=== PATIENT | female | born 1970 | race Caucasian/White ===

== ENCOUNTER 2017-03-05 14:37 | Observation (INO) | payer MEDICAID ==
[2017-03-05 14:38] VITALS: BMI 22.6
[2017-03-05 16:39] LABS: BASO # 0.2 K/uL (0.0-0.2); BASO % 2.3 % (0.0-2.0); EOS # 0.1 K/uL (0.0-0.7); EOS % 1.5 % (0.0-4.0); HEMATOCRIT 38.4 % (34.0-47.0); LYMPH # 2.4 K/uL (1.0-4.3); LYMPH % 23.6 % (20.0-40.0); MEAN CELL VOLUME 85.7 fL (81.0-99.0); MEAN CORPUSCULAR HGB CONC 33.9 g/dL (33.0-37.0); MEAN PLATELET VOLUME 7.8 fL (7.2-11.7); MONO # 0.5 K/uL (0.0-0.8); MONO % 5.3 % (0.0-10.0); WHITE BLOOD COUNT 10.1 K/uL (4.8-10.8)
[2017-03-05 16:42] LABS: CHLORIDE 100 mmol/L (98-107); SODIUM 133 mmol/L (132-148)
[2017-03-05 16:43] LABS: POTASSIUM 3.7 mmol/L (3.6-5.2)
[2017-03-05 16:45] LABS: ALB/GLOB RATIO 1.2 (1.0-2.1); ALKALINE PHOSPHATASE 73 U/L (38-126); ALT/SGPT 40 U/L (9-52); AST/SGOT 24 U/L (14-36); BILIRUBIN,TOTAL 0.4 mg/dL (0.2-1.3); BLOOD UREA NITROGEN 11 mg/dL (7-17); CARBON DIOXIDE 20 mmol/L (22-30); GFR AFRICAN-AMERICAN > 60; GLUCOSE,RANDOM 128 mg/dL (65-105); TOTAL PROTEIN 7.7 g/dL (6.3-8.3)
[2017-03-05 16:46] LABS: CALCIUM 8.9 mg/dl (8.6-10.4)
--- NOTE | 2017-03-05 16:59 | C.PDOC ---
History Of Present Illness 46 year old female, whose past medical history includes DM, Hypercholesterolemia and past familial history includes heart disease (mother), presents to the ED for evaluation of chest pain that radiates to left arm since 1330 today. Patient states she has not taken anything for her pain. She denies fever, chills, shortness of breath, nausea, vomiting diaphoresis, extremity numbness/weakness. Time Seen by Provider: 03/05/17 16:02 Chief Complaint (Nursing): Chest Pain History Per: Patient History/Exam Limitations: no limitations Onset/Duration Of Symptoms: Hrs Current Symptoms Are (Timing): Still Present Quality: "Pain" Associated Symptoms: denies: Nausea, Diaphoresis Additional History Per: Patient Past Medical History Reviewed: Historical Data, Nursing Documentation, Vital Signs Vital Signs: Last Vital Signs Temp 98.5 F 03/05/17 22:05 Pulse 65 03/05/17 22:05 Resp 20 03/05/17 22:05 BP 106/72 03/05/17 22:05 Pulse Ox 95 03/05/17 22:05 - Medical History PMH: Bronchitis, Diabetes, Hypercholesterolemia Denies: Hepatitis, HIV, HTN, Seizures, Sexually Transmitted Disease Family History: States: [place] (heart disease in mother ), Other - Social History Hx Tobacco Use: No Hx Alcohol Use: No Hx Substance Use: No - Immunization History Hx Tetanus Toxoid Vaccination: Yes Hx Influenza Vaccination: Yes Hx Pneumococcal Vaccination: Yes Review Of Systems Constitutional: Negative for: Fever, Chills, Sweats Cardiovascular: Positive for: Chest Pain Respiratory: Negative for: Shortness of Breath Gastrointestinal: Negative for: Nausea, Vomiting Musculoskeletal: Positive for: Arm Pain (left) Neurological: Negative for: Weakness, Numbness Physical Exam - Physical Exam Appears: Non-toxic, No Acute Distress Skin: Normal Color, Warm, Dry Head: Atraumatic, Normacephalic Eye(s): bilateral: Normal Inspection Oral Mucosa: Moist Neck: Supple Chest: Symmetrical, No Deformity, No Tenderness Cardiovascular: Rhythm Regular, No Murmur Respiratory: Normal Breath Sounds, No Rales, No Rhonchi, No Wheezing Extremity: Normal ROM, Capillary Refill (less than 2 seconds ) Neurological/Psych: Oriented x3, Normal Speech, Normal Cognition Gait: Steady ED Course And Treatment - Laboratory Results Result Diagrams: 03/05/17 16:28 03/05/17 16:28 ECG: Interpreted By Me, Viewed By Me ECG Rhythm: Sinus Rhythm Interpretation Of ECG: Normal Sinus Rhythm at rate 62bpm. No ST-segment elevations or depressions, no T-wave inversions, normal intervals. Rate From EC O2 Sat by Pulse Oximetry: 99 - Other Rad CXR X-Ray: Interpreted by Me, Viewed By Me, Read By Radiologist Interpretation: IMPRESSION: No focal consolidation, significant pleural effusion, or definite pneumothorax identified. Medical Decision Making Medical Decision Making: Assessment: chest pain Plan: * bloodwork * urinalysis * EKG * CXR * Aspirin PO * reassess and disposition Progress: Bloodwork, urinalysis, EKG, CXR ordered and reviewed. Aspirin PO administered. Case discussed with Shirt Ironer. Disposition Discussed With Dr.: Anam Aguero Jr. Doctor Will See Patient In The: Hospital Counseled Patient/Family Regarding: Studies Performed, Diagnosis - Disposition Disposition: HOSPITALIZED Disposition Time: 18:34 Condition: STABLE - Clinical Impression Clinical Impression: Chest pain - Scribe Statement The provider has reviewed the documentation as recorded by the Scribe (Daisy Ewing) Provider Attestation: All medical record entries made by the Scribe were at my direction and personally dictated by me. I have reviewed the chart and agree that the record accurately reflects my personal performance of the history, physical exam, medical decision making, and the department course for this patient. I have also personally directed, reviewed, and agree with the discharge instructions and disposition.
--- NOTE | 2017-03-05 18:16 | RAD ---
HISTORY: chest pain COMPARISON: Chest x-ray performed 05/23/13. TECHNIQUE: Chest PA and lateral FINDINGS: Examination limited by habitus. LUNGS: No focal consolidation. Please note that chest x-ray has limited sensitivity for the detection of pulmonary masses. PLEURA: No significant pleural effusion identified. No definite pneumothorax . CARDIOVASCULAR: Heart size appears within normal limits. OSSEOUS STRUCTURES: Degenerative changes. VISUALIZED UPPER ABDOMEN: Unremarkable. OTHER FINDINGS: None. IMPRESSION: No focal consolidation, significant pleural effusion, or definite pneumothorax identified.
--- NOTE | 2017-03-05 23:15 | CP.PCM.HP ---
History of Present Illness - History of Present Illness History of Present Illness: CC: Chest pain HPI: 46 year old female with a past medical history of DM2 and HLD. 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 The chest pain is described as "electric pressure," rated 4/10, and radiating to the left shoulder and arm. Associated symptoms included sweats, palpitations, hot sensation to left side of face, dizziness, and blurry vision. The pain was reportedly worse with palpation of the chest. Symptoms lasted 5 minutes before resolving on their own. Patient states she had a similar episode 2 years ago but was told nothing was wrong. She denies any past workup with echocardiogram or stress test. Denies recent travel or trauma, but states that she was moving heavy furniture yesterday. Denies recent illness, fever, vomiting, headache, weakness. Patient was given aspirin in ED. She has no chest pain or any other complaints at time of exam. Of note, patient states she has been forgetful with taking her medications. She states that her blood sugar usually ranges between 170 and 200+ at home, sometimes 300. Fingerstick at ED is 128. 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 absent: Dyspnea - Respiratory Respiratory: absent: Cough, Dyspnea - Gastrointestinal Gastrointestinal: absent: Abdominal Pain, Constipation, Diarrhea, Nausea, Vomiting - Genitourinary Genitourinary: absent: Dysuria, Hematuria, Urinary Frequency - Musculoskeletal Musculoskeletal: absent: Numbness, Tingling - Neurological Neurological: Dizziness. absent: Headaches, Tingling - Endocrine Endocrine: Palpitations Past Patient History - Past Medical History & Family History Past Medical History?: Yes - Past Social History Smoking Status: Never Smoked - CARDIAC Hx Cardiac Disorders: Yes Hx Hypercholesterolemia: Yes Hx Hypertension: No - PULMONARY Hx Respiratory Disorders: Yes Hx Bronchitis: Yes - NEUROLOGICAL Hx Neurological Disorder: No Hx Seizures: No - ENDOCRINE/METABOLIC Hx Endocrine Disorders: Yes Hx Diabetes Mellitus Type 2: Yes - HEMATOLOGICAL/ONCOLOGICAL Hx Blood Disorders: No Hx Human Immunodeficiency Virus (HIV): No - INTEGUMENTARY Hx Dermatological Problems: No - MUSCULOSKELETAL/RHEUMATOLOGICAL Hx Musculoskeletal Disorders: No Hx Falls: No - GASTROINTESTINAL Hx Gastrointestinal Disorders: No - GENITOURINARY/GYNECOLOGICAL Hx Genitourinary Disorders: No Hx Sexually Transmitted Disorders: No - PSYCHIATRIC Hx Psychophysiologic Disorder: No Hx Substance Use: No - SURGICAL HISTORY Hx Surgeries: Yes Hx Section: Yes Hx Gastric Bypass Surgery: Yes - ANESTHESIA Hx Anesthesia: Yes Hx Anesthesia Reactions: No Meds Allergies/Adverse Reactions: Allergies Allergy/AdvReac Type Severity Reaction Status Date / Time No Known Allergies Allergy Verified 07/23/14 16:04 Physical Exam - Constitutional Appears: No Acute Distress - Head Exam Head Exam: ATRAUMATIC, NORMAL INSPECTION - Eye Exam Eye Exam: EOMI, Normal appearance Pupil Exam: PERRL - ENT Exam ENT Exam: Mucous Membranes Moist - Respiratory Exam Respiratory Exam: Clear to Auscultation Bilateral, NORMAL BREATHING PATTERN. absent: Rales, Rhonchi, Wheezes - Cardiovascular Exam Cardiovascular Exam: REGULAR RHYTHM, RRR, +S1, +S2 - GI/Abdominal Exam GI & Abdominal Exam: Normal Bowel Sounds, Soft. absent: Distended, Firm, Mass, Tenderness - Extremities Exam Extremities exam: Positive for: normal inspection, pedal pulses present. Negative for: calf tenderness, pedal edema, tenderness - Neurological Exam Neurological exam: Alert, Oriented x3 - Psychiatric Exam Psychiatric exam: Normal Affect, Normal Mood - Skin Skin Exam: Dry, Intact, Normal Color, Warm Results - Vital Signs Recent Vital Signs: Last Vital Signs Temp 98.5 F 03/05/17 22:05 Pulse 65 03/05/17 22:05 Resp 20 03/05/17 22:05 BP 106/72 03/05/17 22:05 Pulse Ox 95 03/05/17 22:05 - Labs Result Diagrams: 03/05/17 16:28 03/05/17 16:28 Labs: Laboratory Results - last 24 hr 03/05/17 03/05/17 03/05/17 16:28 16:28 16:59 WBC 10.1 RBC 4.48 Hgb 13.0 Hct 38.4 MCV 85.7 D MCH 29.0 MCHC 33.9 RDW 13.0 Plt Count 315 MPV 7.8 Neut % (Auto) 67.3 Lymph % (Auto) 23.6 [place] % (Auto) 5.3 Eos % (Auto) 1.5 Baso % (Auto) 2.3 H Neut # 6.8 Lymph # 2.4 [place] # 0.5 Eos # 0.1 Baso # 0.2 Sodium 133 Potassium 3.7 Chloride 100 Carbon Dioxide 20 L Anion Gap 17 BUN 11 Creatinine 0.5 L Est GFR ( Amer) > 60 Est GFR (Non-Af Amer) > 60 Random Glucose 128 H Calcium 8.9 Total Bilirubin 0.4 AST 24 ALT 40 Alkaline Phosphatase 73 Troponin I < 0.0120 Total Protein 7.7 Albumin 4.2 Globulin 3.6 Albumin/Globulin Ratio 1.2 Urine HCG, Qual Negative Assessment & Plan (1) Chest pain Assessment and Plan: EKG: NSR @62bpm CXR: no active disease Troponinx1: negative Troponin x2: f/u results Echo: f/u results TSH: f/u results UDS: negative Cardiology consulted- Dr. Solorzano, help appreciated Status: Acute (2) Hyperlipidemia Assessment and Plan: Continue home medication- Fenofibrate Status: Acute (3) Diabetes Assessment and Plan: Continue home medication- Metformin Monitor blood glucose, Accuchecks Hemoglobin A1c: f/u results Status: Acute (4) Prophylactic measure Assessment and Plan: SCDs O2 via nasal cannula prn Pepcid 20mg PO BID Heparin 5000 SC Aspirin 81mg PO daily Heart Healthy diet Activity as tolerated Status: Acute
--- NOTE | 2017-03-06 07:31 | CP.PCM.CON ---
History of Present Illness - History of Present Illness History of Present Illness: I was asked to see patient by Dr. Aguero. Patient is a 46 year old female with PMH HTN, hypercholesterolemia, DM who presents with chest pain. The patient states she was at work when she noted chest discomfort and palpitations. The patient had recurrence of symptoms and then presented to [facility]. The patient no longer has chest discomfort. She denies dyspnea at this time. Review of Systems - Constitutional Constitutional: absent: As Per HPI, Anorexia, Chills, Daytime Sleepiness, Excessive Sweating, Fatigue, Fever, Frequent Falls, Headache, Increased Appetite , Lethargy, Malaise, Night Sweats, Snoring, Sleep Apnea, Weight Gain, Weight Loss, Weakness, Other - EENT Eyes: absent: As Per HPI, Blind Spots, Blurred Vision, Change in Vision, Decreased Night Vision, Diplopia, Discharge, Dry Eye, Exophthalmos, Floaters, Irritation, Itchy Eyes, Loss of Peripheral Vision, Pain, Photophobia, Requires Corrective Lenses, Sees Flashes, Spots in Vision, Tunnel Vision, Other Visual Disturbances, Loss of Vision, Other Ears: absent: As Per HPI, Decreased Hearing, Ear Discharge, Ear Pain, Tinnitus, Abnormal Hearing, Disequilibrium, Dizziness, Other Nose/Mouth/Throat: absent: As Per HPI, Epistaxis, Nasal Congestion, Nasal Discharge, Nasal Obstruction, Nasal Trauma, Nose Pain, Post Nasal Drip, Sinus Pain, Sinus Pressure, Bleeding Gums, Change in Voice, Dental Pain, Dry Mouth, Dysphagia, Halitosis, Hoarsness, Lip Swelling, Mouth Lesions, Mouth Pain, Odynophagia, Sore Throat, Throat Swelling, Tongue Swelling, Facial Pain, Neck Pain, Neck Mass, Other - Cardiovascular Cardiovascular: Chest Pain - Respiratory Respiratory: absent: As Per HPI, Cough, Dyspnea, Hemoptysis, Dyspnea on Exertion , Wheezing, Snoring, Stridor, Pain on Inspiration, Chest Congestion, Excessive Mucous Production, Change in Mucous Color, Pain with Coughing, Other - Gastrointestinal Gastrointestinal: absent: As Per HPI, Abdominal Pain, Belching, Bloating, Change in Bowel Habits, Change in Stool Character, Coffee Ground Emesis, Constipation, Cramping, Diarrhea, Dyspepsia, Dysphagia, Early Satiety, Excessive Flatus, Fecal Incontinence, Heartburn, Hematemesis, Hematochezia, Loose Stools, Melena, Nausea, Odynophagia, Temesmus, Vomiting, Other - Musculoskeletal Musculoskeletal: absent: As Per HPI, Abnormal Gait, Arthralgias, Atrophy, Back Pain, Deformity, Joint Swelling, Limited Range of Motion, Loss of Height, Muscle Cramps, Muscle Weakness, Myalgias, Neck Pain, Numbness, Radiating Pain into Limb, Stiffness, Tingling, Other - Integumentary Integumentary: absent: As Per HPI, Acne, Alopecia, Bleeding Lesions, Change in Hair, Change in Nails, Change in Pigmentation, Changing Lesions, Dry Skin, Erythema, Furuncle, Hirsutism, Lesions, New Lesions, Non-Healing Lesions, Photosensitivity, Pruritus, Rash, Skin Pain, Skin Ulcer, Sores, Striae, Swelling , Unusual Bruising, Wounds, Jaundice, Other - Neurological Neurological: absent: As Per HPI, Abnormal Gait, Abnormal Hearing, Abnormal Movements, Abnormal Speech, Behavioral Changes, Burning Sensations, Confusion, Convulsions, Disequilibrium, Dizziness, Numbness, Focal Weakness, Frequent Falls , Headaches, Lack of Coordination, Loss of Vision, Memory Loss, Paresthesias, Radicular Pain, Restless Legs, Sensory Deficit, Syncope, Tingling, Tremor, Vertigo, Weakness, Other Visual Disturbances, Other - Psychiatric Psychiatric: absent: As Per HPI, Abnormal Sleep Pattern, Anhedonia, Anxiety, Auditory Hallucinations, Behavioral Changes, Change in Appetite, Change in Libido, Confusion, Depression, Difficulty Concentrating, Hallucinations, Homicidal Ideation, Hopelessness, Irritability, Memory Loss, Mood Swings, Panic Attacks, Paranoia, Suicidal Ideation, Visual Hallucinations, Tactile Hallucinations, Other - Endocrine Endocrine: absent: As Per HPI, Change in Body Appearance, Change in Libido, Cold Intolorance, Deepening of Voice, Excessive Sweating, Fatigue, Flushing, Heat Intolorance, Increase in Ring/Shoe/Hat Size, Palpitations, Polydipsia, Polyphagia, Polyuria, Other - Hematologic/Lymphatic Hematologic: absent: As Per HPI, Easy Bleeding, Easy Bruising, Lymphadenopathy, Other Past Patient History - Past Medical History & Family History Past Medical History?: Yes - Past Social History Smoking Status: Never Smoked - CARDIAC Hx Hypercholesterolemia: Yes Hx Hypertension: No - PULMONARY Hx Bronchitis: Yes - NEUROLOGICAL Hx Seizures: No - ENDOCRINE/METABOLIC Hx Endocrine Disorders: Yes Hx Diabetes Mellitus Type 2: Yes - HEMATOLOGICAL/ONCOLOGICAL Hx Human Immunodeficiency Virus (HIV): No - INTEGUMENTARY Hx Dermatological Problems: No - MUSCULOSKELETAL/RHEUMATOLOGICAL Hx Musculoskeletal Disorders: No Hx Falls: No - GASTROINTESTINAL Hx Gastrointestinal Disorders: No - GENITOURINARY/GYNECOLOGICAL Hx Sexually Transmitted Disorders: No - PSYCHIATRIC Hx Substance Use: No - SURGICAL HISTORY Hx Surgeries: Yes Hx Section: Yes Hx Gastric Bypass Surgery: Yes - ANESTHESIA Hx Anesthesia: Yes Hx Anesthesia Reactions: No Meds Allergies/Adverse Reactions: Allergies Allergy/AdvReac Type Severity Reaction Status Date / Time No Known Allergies Allergy Verified 07/23/14 16:04 - Medications Medications: Current Medications Aspirin (Aspirin Chewable) 81 mg PO DAILY [facility] Famotidine (Pepcid) 20 mg PO BID [facility] Heparin Sodium (Porcine) (Heparin) 5,000 units SC Q8 [facility] Last Admin: 03/06/17 05:43 Dose: 5,000 units Home Med (Fenofibrate) 1 tab PO DAILY [facility] Metformin HCl (Glucophage) 500 mg PO BID [facility] Physical Exam - Constitutional Appears: Non-toxic - Head Exam Head Exam: NORMAL INSPECTION - Eye Exam Eye Exam: Normal appearance - ENT Exam ENT Exam: Mucous Membranes Moist - Neck Exam Neck exam: Positive for: Full Rom - Respiratory Exam Respiratory Exam: NORMAL BREATHING PATTERN - Cardiovascular Exam Cardiovascular Exam: REGULAR RHYTHM - GI/Abdominal Exam GI & Abdominal Exam: Normal Bowel Sounds - Rectal Exam Rectal Exam: Deferred - Extremities Exam Extremities exam: Negative for: pedal edema - Back Exam Back exam: NORMAL INSPECTION - Neurological Exam Neurological exam: Alert, Oriented x3 - Psychiatric Exam Psychiatric exam: Normal Affect - Skin Skin Exam: Normal Color Results - Vital Signs Recent Vital Signs: Last Vital Signs Temp 97.9 F 03/06/17 04:46 Pulse 65 03/06/17 04:46 Resp 20 03/06/17 04:46 BP 95/59 L 03/06/17 04:46 Pulse Ox 99 03/06/17 04:46 - Labs Result Diagrams: 03/05/17 16:28 03/05/17 16:28 Labs: Laboratory Results - last 24 hr 03/05/17 03/05/17 03/05/17 16:28 16:28 16:59 WBC 10.1 RBC 4.48 Hgb 13.0 Hct 38.4 MCV 85.7 D MCH 29.0 MCHC 33.9 RDW 13.0 Plt Count 315 MPV 7.8 Neut % (Auto) 67.3 Lymph % (Auto) 23.6 [place] % (Auto) 5.3 Eos % (Auto) 1.5 Baso % (Auto) 2.3 H Neut # 6.8 Lymph # 2.4 [place] # 0.5 Eos # 0.1 Baso # 0.2 Sodium 133 Potassium 3.7 Chloride 100 Carbon Dioxide 20 L Anion Gap 17 BUN 11 Creatinine 0.5 L Est GFR ( Amer) > 60 Est GFR (Non-Af Amer) > 60 POC Glucose (mg/dL) Random Glucose 128 H Calcium 8.9 Total Bilirubin 0.4 AST 24 ALT 40 Alkaline Phosphatase 73 Troponin I < 0.0120 Total Protein 7.7 Albumin 4.2 Globulin 3.6 Albumin/Globulin Ratio 1.2 Urine HCG, Qual Negative 03/06/17 03/06/17 00:09 06:25 WBC RBC Hgb Hct MCV MCH MCHC RDW Plt Count MPV Neut % (Auto) Lymph % (Auto) [place] % (Auto) Eos % (Auto) Baso % (Auto) Neut # Lymph # [place] # Eos # Baso # Sodium Potassium Chloride Carbon Dioxide Anion Gap BUN Creatinine Est GFR ( Amer) Est GFR (Non-Af Amer) POC Glucose (mg/dL) 116 H Random Glucose Calcium Total Bilirubin AST ALT Alkaline Phosphatase Troponin I < 0.0120 Total Protein Albumin Globulin Albumin/Globulin Ratio Urine HCG, Qual - EKG Data EKG Interpreted by: Myself EKG shows normal: Sinus rhythm Assessment & Plan (1) HTN (hypertension) Assessment and Plan: blood pressure control. Status: Acute (2) Chest pain Assessment and Plan: negative for OR. patient has DM which is a risk factor for CAD. thus far cardiac enzymes are negative. I will schedule outpatient stress test. Status: Acute (3) Diabetes Status: Acute (4) Hyperlipidemia Status: Acute
[2017-03-06 07:48] VITALS: O2SAT 95
[2017-03-06 08:35] LABS: BASO # 0.1 K/uL (0.0-0.2); BASO % 0.8 % (0.0-2.0); EOS # 0.1 K/uL (0.0-0.7); EOS % 1.7 % (0.0-4.0); HEMATOCRIT 35.6 % (34.0-47.0); LYMPH # 2.2 K/uL (1.0-4.3); LYMPH % 27.6 % (20.0-40.0); MEAN CELL VOLUME 84.7 fL (81.0-99.0); MEAN CORPUSCULAR HEMOGLOBIN 29.5 pg (27.0-31.0); MEAN CORPUSCULAR HGB CONC 34.8 g/dL (33.0-37.0); MEAN PLATELET VOLUME 7.9 fL (7.2-11.7); MONO # 0.5 K/uL (0.0-0.8); RED CELL DISTRIBUTION WIDTH 12.9 % (11.5-14.5); WHITE BLOOD COUNT 7.8 K/uL (4.8-10.8)
[2017-03-06 09:00] LABS: CHLORIDE 102 mmol/L (98-107); POTASSIUM 3.5 mmol/L (3.6-5.2); SODIUM 134 mmol/L (132-148)
[2017-03-06 09:02] LABS: BILIRUBIN,TOTAL 0.5 mg/dL (0.2-1.3); CARBON DIOXIDE 21 mmol/L (22-30); GFR AFRICAN-AMERICAN > 60
[2017-03-06 09:03] LABS: ALB/GLOB RATIO 1.1 (1.0-2.1); ALKALINE PHOSPHATASE 79 U/L (38-126); ALT/SGPT 42 U/L (9-52); AST/SGOT 27 U/L (14-36); BLOOD UREA NITROGEN 13 mg/dL (7-17); CALCIUM 8.3 mg/dl (8.6-10.4); GLUCOSE,RANDOM 109 mg/dL (65-105); TOTAL PROTEIN 7.1 g/dL (6.3-8.3)
[2017-03-06] MEDS ORDERED: Potassium Chloride 20 mEq ER Tab PO ONE (09:39)
[2017-03-06] MEDS ORDERED: FENOFIBRATE PO SCH (10:00)
--- NOTE | 2017-03-06 10:28 | CP.PCM.DIS ---
Provider - Provider Date of Admission: 03/05/17 18:36 Attending physician: Anam Aguero Jr, MD Consults: Dr. Solorzano-Cardiology Time Spent in preparation of Discharge (in minutes): 35 Diagnosis - Discharge Diagnosis (1) Chest pain, rule out acute myocardial infarction Status: Acute (2) Diabetes Status: Chronic (3) Hyperlipidemia Status: Chronic (4) Prophylactic measure Status: Acute Hospital Course - Lab Results Lab Results: Most Recent Lab Values WBC 7.8 K/uL (4.8-10.8) 03/06/17 08:21 RBC 4.21 Mil/uL (3.80-5.20) 03/06/17 08:21 Hgb 12.4 g/dL (11.0-16.0) 03/06/17 08:21 Hct 35.6 % (34.0-47.0) 03/06/17 08:21 MCV 84.7 fL (81.0-99.0) 03/06/17 08:21 MCH 29.5 pg (27.0-31.0) 03/06/17 08:21 MCHC 34.8 g/dL (33.0-37.0) 03/06/17 08:21 RDW 12.9 % (11.5-14.5) 03/06/17 08:21 Plt Count 317 K/uL (130-400) 03/06/17 08:21 MPV 7.9 fL (7.2-11.7) 03/06/17 08:21 Neut % (Auto) 63.9 % (50.0-75.0) 03/06/17 08:21 Lymph % (Auto) 27.6 % (20.0-40.0) 03/06/17 08:21 [place] % (Auto) 6.0 % (0.0-10.0) 03/06/17 08:21 Eos % (Auto) 1.7 % (0.0-4.0) 03/06/17 08:21 Baso % (Auto) 0.8 % (0.0-2.0) 03/06/17 08:21 Neut # 5.0 K/uL (1.8-7.0) 03/06/17 08:21 Lymph # 2.2 K/uL (1.0-4.3) 03/06/17 08:21 [place] # 0.5 K/uL (0.0-0.8) 03/06/17 08:21 Eos # 0.1 K/uL (0.0-0.7) 03/06/17 08:21 Baso # 0.1 K/uL (0.0-0.2) 03/06/17 08:21 Sodium 134 mmol/L (132-148) 03/06/17 08:21 Potassium 3.5 mmol/L (3.6-5.2) L 03/06/17 08:21 Chloride 102 mmol/L (98-107) 03/06/17 08:21 Carbon Dioxide 21 mmol/L (22-30) L 03/06/17 08:21 Anion Gap 15 (10-20) 03/06/17 08:21 BUN 13 mg/dL (7-17) 03/06/17 08:21 Creatinine 0.6 mg/dL (0.7-1.2) L 03/06/17 08:21 Est GFR ( Amer) > 60 03/06/17 08:21 Est GFR (Non-Af Amer) > 60 03/06/17 08:21 POC Glucose (mg/dL) 116 mg/dL (65-110) H 03/06/17 06:25 Random Glucose 109 mg/dL (65-105) H 03/06/17 08:21 Hemoglobin A1c 7.3 % (4.2-6.5) H 03/06/17 08:21 Calcium 8.3 mg/dl (8.6-10.4) L 03/06/17 08:21 Total Bilirubin 0.5 mg/dL (0.2-1.3) 03/06/17 08:21 AST 27 U/L (14-36) 03/06/17 08:21 ALT 42 U/L (9-52) 03/06/17 08:21 Alkaline Phosphatase 79 U/L (38-126) 03/06/17 08:21 Troponin I < 0.0120 ng/mL (0.00-0.120) 03/06/17 08:21 Total Protein 7.1 g/dL (6.3-8.3) 03/06/17 08:21 Albumin 3.6 g/dL (3.5-5.0) 03/06/17 08:21 Globulin 3.5 gm/dL (2.2-3.9) 03/06/17 08:21 Albumin/Globulin Ratio 1.1 (1.0-2.1) 03/06/17 08:21 TSH 3rd Generation 3.80 mIU/L (0.46-4.68) 03/06/17 08:21 Urine HCG, Qual Negative (NEGATIVE) 03/05/17 16:59 - Hospital Course Hospital Course: On admission: "46 year old female with a past medical history of DM2 and HLD. 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 The chest pain is described as "electric pressure," rated 4/10, and radiating to the left shoulder and arm. Associated symptoms included sweats, palpitations, hot sensation to left side of face, dizziness, and blurry vision. The pain was reportedly worse with palpation of the chest. Symptoms lasted 5 minutes before resolving on their own. Patient states she had a similar episode 2 years ago but was told nothing was wrong. She denies any past workup with echocardiogram or stress test. Denies recent travel or trauma, but states that she was moving heavy furniture yesterday. Denies recent illness, fever, vomiting, headache, weakness. Patient was given aspirin in ED. She has no chest pain or any other complaints at time of exam. Of note, patient states she has been forgetful with taking her medications. She states that her blood sugar usually ranges between 170 and 200+ at home, sometimes 300. Fingerstick at ED is 128." Hospital Course: Patient admitted for chest pain and to rule out an LA. EKG and troponins were unremarkable. Chest pain resolved. Echocardiogram was unremarkable. Tack [employer] Dr. Solorzano consulted. Due to her risk factors, he recommended outpatient stress test follow up and to discharge patient on Aspirin 81 mg. Hemoglobin A1C 7.3. Patient states that she frequently forgets to take her diabetes medications. Patient advised on diet and lifestyle changes and instructed to follow up with her primary care physician regarding medication adjustment. This is a summary of the hospital course. For more information, refer to the medical records. Discharge Exam - Head Exam Head Exam: ATRAUMATIC, NORMAL INSPECTION - Eye Exam Eye Exam: EOMI, PERRL - ENT Exam ENT Exam: Mucous Membranes Moist - Respiratory Exam Respiratory Exam: Clear to PA & Lateral, NORMAL BREATHING PATTERN. absent: Rales, Rhonchi, Wheezes, Respiratory Distress - Cardiovascular Exam Cardiovascular Exam: REGULAR RHYTHM, +S1, +S2 - GI/Abdominal Exam GI & Abdominal Exam: Normal Bowel Sounds, Soft. absent: Tenderness - Extremities Exam Extremities exam: pedal pulses present - Neurological Exam Neurological exam: Alert, CN II-XII Intact, Oriented x3 - Skin Skin Exam: Dry, Intact, Normal Color, Warm Discharge Plan - Follow Up Plan Condition: STABLE Disposition: HOME/ ROUTINE Instructions: Chest Pain (DC), Heart Healthy Diet (DC) Additional Instructions: Please purchase the baby aspirin which is 81 mg. Take 1 tablet by mouth every morning with your breakfast. Please follow up with Dr. Solorzano to evaluate your heart. He has left his card with you, and we have included his information in your paperwork. Please follow up with your primary doctor Dr. Dominguez within 1 week. Tell him that your hemoglobin A1C was 7.3. If there are any new or worsening symptoms, return to the emergency room. Por favor, compre la aspirina beb que es de 81 mg. [place] 1 comprimido por va oral cada maana con bhardwaj desayuno. Por favor, siga con el Dr. Solorzano para evaluar bhardwaj corazn. [place] dejado bhardwaj tarjeta contigo, y hemos incluido bhardwaj informacin en tus papeles. Por favor, siga con bhardwaj mdico Dr. Dominguez en ovidio semana. Dgale que bhardwaj hemoglobina A1C fue de 7,3. Si hay sntomas nuevos o que empeoran, regrese a la ember de emergencias. Referrals: Colin Dominguez MD [Medical Doctor] - Raphael Solorzano MD [Staff Provider] -
--- NOTE | 2017-03-06 14:26 | CARD ---
APPROVED REPORT EXAM: Two-dimensional and M-mode echocardiogram with Doppler and color Doppler. Other Information Quality : GoodRhythm : NSR INDICATION Chest Pain RISK FACTORS Hypertension Hyperlipidemia Diabetes M-Mode DIMENSIONS RVDd2.52 (2.1-3.2cm)Left Atrium (MM)2.76 (2.5-4.0cm) IVSd0.67 (0.7-1.1cm)Aortic Root2.28 (2.2-3.7cm) LVDd4.31 (4.0-5.6cm)Aortic Cusp Exc.1.79 (1.5-2.0cm) PWd0.79 (0.7-1.1cm)FS (%) 32 % LVDs2.95 (2.0-3.8cm)LVEF (%)60 (>50%) Mitral Valve MV E Uftbhyey97.6cm/sMV A Qesuvsot54.2cm/sE/A ratio1.3 TDI E/Lateral E'0.0E/Medial E'0.0 Tricuspid Valve TR Peak Vzdmshqk688jv/sTR Peak Gr.[id number] LEFT VENTRICLE The left ventricle is normal size. There is normal left ventricular wall thickness. The left ventricular function is normal. The left ventricular ejection fraction is within the normal range. There is normal LV segmental wall motion. The left ventricular diastolic function is normal. RIGHT VENTRICLE The right ventricle is normal size. There is normal right ventricular wall thickness. The right ventricular systolic function is normal. ATRIA The left atrium size is normal. The right atrium size is normal. AORTIC VALVE The aortic valve is normal in structure. No aortic regurgitation is present. There is no aortic valvular stenosis. MITRAL VALVE The mitral valve is normal in structure. There is no evidence of mitral valve prolapse. TRICUSPID VALVE There is trace tricuspid regurgitation. GREAT VESSELS The aortic root is normal in size. The IVC is normal in size and collapses >50% with inspiration. PERICARDIAL EFFUSION There is no pericardial effusion. <Conclusion> The left ventricle is normal size. There is normal left ventricular wall thickness. The left ventricular function is normal. The left ventricular ejection fraction is within the normal range. There is normal LV segmental wall motion. The left ventricular diastolic function is normal.
--- NOTE | 2017-03-06 15:30 | CARD ---
APPROVED REPORT EKG Measurement Heart [id number] <Conclusion> Normal sinus rhythm Possible Anterior infarct, age undetermined Abnormal ECG
--- NOTE | 2017-03-06 15:31 | CARD ---
APPROVED REPORT EKG Measurement Heart [id number] <Conclusion> Normal sinus rhythm Normal ECG
[2017-03-06 15:51] VITALS: BP 97/67; RESP 20; TEMP 98.1
[2017-03-06 20:47] VITALS: PULSE 67
[2017-03-07] MEDS ORDERED: Influenza Vaccine 60 mcg/0.5 mL SYR (4YR UP) IM ONE (10:00)
[2017-03-07] MEDS ORDERED: Pneumococcal 23-Valent Vaccine IM ONE (10:00)
== END 2017-03-06 19:25 | disposition home or self-care (01) ==
LOC: C.ER 14:37 → C.9E 18:36 → C.6T 20:56
PROVIDERS: ADMIT Internal Medicine; ATTEND Internal Medicine
DX: R07.89 Other chest pain (principal); E78.5 Hyperlipidemia, unspecified; Z98.84 Bariatric surgery status; I10 Essential (primary) hypertension; E11.9 Type 2 diabetes mellitus without complications; Z79.84 Long term (current) use of oral hypoglycemic drugs
CPT/HCPCS: 36415; 71020; 80053; 82948; 83036; 84443; 84484; 84703; 85025; 93005; 93306; 99285; G0378; J1644

== ENCOUNTER 2017-10-01 17:27 | Emergency (ER) | payer MEDICAID ==
[2017-10-01 17:27] VITALS: BMI 22.6
[2017-10-01 19:55] LABS: SQUAMOUS EPITHIAL < 1 /hpf (0-5); URINE BILIRUBIN NEGATIVE (NEGATIVE); URINE BLOOD NEGATIVE (NEGATIVE); URINE CLARITY Clear (Clear); URINE COLOR Colorless (YELLOW); URINE GLUCOSE (UA) 1+ mg/dL (Normal); URINE LEUKOCYTE ESTERASE NEG Leu/uL (Negative); URINE PROTEIN NEGATIVE (NEGATIVE); URINE UROBILINOGEN NORMAL mg/dL (0.2-1.0)
[2017-10-01 19:56] LABS: HCG,QUALITATIVE URINE NEGATIVE (NEGATIVE)
--- NOTE | 2017-10-01 20:50 | C.PDOC ---
History Of Present Illness 47 year old female presents to the emergency department with complaints of lower back pain that radiates bilaterally to her lower extremities. Patient states that her pain is worse with movements and she finds it difficult to walk. Patient denies nausea, vomiting, or dysuria. Chief Complaint (Nursing): Abdominal Pain History Per: Patient Current Symptoms Are (Timing): Still Present Radiation Of Pain To:: Leg, Other (pelvis) Quality Of Discomfort: "Pain" Associated Symptoms: denies: Nausea, Vomiting, Urinary Symptoms Exacerbating Factors: Movement Past Medical History Reviewed: Historical Data, Nursing Documentation, Vital Signs Vital Signs: Last Vital Signs Temp 98.9 F 10/01/17 23:28 Pulse 65 10/01/17 23:28 Resp 18 10/01/17 23:28 BP 109/69 10/01/17 23:28 Pulse Ox 98 10/01/17 23:40 - Medical History PMH: Bronchitis, Diabetes, Hypercholesterolemia Denies: Hepatitis, HIV, HTN, Seizures, Sexually Transmitted Disease Surgical History: No Surg Hx Family History: States: ID (heart disease in mother ) - Social History Hx Tobacco Use: No Hx Alcohol Use: No Hx Substance Use: No - Immunization History Hx Tetanus Toxoid Vaccination: Yes Hx Influenza Vaccination: Yes Hx Pneumococcal Vaccination: Yes Review Of Systems Except As Marked, All Systems Reviewed And Found Negative. Gastrointestinal: Negative for: Nausea, Vomiting Genitourinary: Negative for: Dysuria Musculoskeletal: Positive for: Back Pain, Leg Pain Physical Exam - Physical Exam Appears: Non-toxic, No Acute Distress Cardiovascular: Rhythm Regular Respiratory: Normal Breath Sounds Gastrointestinal/Abdominal: Normal Exam, Soft, No Tenderness Back: Other (tenderness to lower back area, no focal deficits) ED Course And Treatment - Laboratory Results Result Diagrams: 10/01/17 20:51 10/01/17 20:51 O2 Sat by Pulse Oximetry: 98 (RA) Pulse Ox Interpretation: Normal - Radiology Nexus Criteria: . Focal Neuro Deficit - CT Scan/US Abdomen/Pelvis Other Rad Studies (CT/US): Read By Radiologist, Radiology Report Reviewed CT/US Interpretation: 1. No definite CT evidence of urolithiasis. 2. Probable LEFT ovarian cyst. Consider ultrasound. 3. Incidental/non-acute findings are described above. Transvaginal US Other Rad Studies (CT/US): Read By Radiologist, Radiology Report Reviewed CT/US Interpretation: 1. Probable hemorrhagic RIGHT ovarian cyst. Recommend sonographic followup in 6 weeks to. ensure resolution and exclude other etiologies. 2. Simple RIGHT ovarian cyst. 3. Simple LEFT ovarian cyst. 4. Probable fibroid uterus. 5. Incidental/non-acute findings are described above Medical Decision Making Medical Decision Making: Plan: CT Abd Pelvis w/o Contrast CMP CBC Disposition Counseled Patient/Family Regarding: Diagnosis - Disposition Referrals: [facility] at [facility] [Outside] Disposition: HOME/ ROUTINE Disposition Time: 01:03 Condition: STABLE Prescriptions: Naproxen 375 mg PO TIDPC #20 tablet Instructions: Ovarian Cyst (DC), Uterine Fibroids (DC) Forms: [employer] (Bolivian), Gen Discharge Inst Maltese Print Language: EMIRATI - POA Present On Arrival: None - Clinical Impression Clinical Impression: Ovarian cyst, Uterine fibroid - Scribe Statement The provider has reviewed the documentation as recorded by the Scribe (Rohit Richardson) Provider Attestation: All medical record entries made by the Scribe were at my direction and personally dictated by me. I have reviewed the chart and agree that the record accurately reflects my personal performance of the history, physical exam, medical decision making, and the department course for this patient. I have also personally directed, reviewed, and agree with the discharge instructions and disposition.
[2017-10-01 20:54] LABS: BASO # 0.1 K/uL (0.0-0.2); BASO % 0.9 % (0.0-2.0); EOS # 0.1 K/uL (0.0-0.7); HEMOGLOBIN 13.3 g/dL (11.0-16.0); LYMPH # 2.9 K/uL (1.0-4.3); LYMPH % 20.6 % (20.0-40.0); MEAN CELL VOLUME 83.5 fL (81.0-99.0); MEAN CORPUSCULAR HEMOGLOBIN 28.8 pg (27.0-31.0); MEAN CORPUSCULAR HGB CONC 34.6 g/dL (33.0-37.0); MEAN PLATELET VOLUME 7.6 fL (7.2-11.7); MONO # 0.7 K/uL (0.0-0.8); MONO % 5.2 % (0.0-10.0); NEUT # 10.3 K/uL (1.8-7.0); NEUT % 72.3 % (50.0-75.0); RBC 4.61 Mil/uL (3.80-5.20); RED CELL DISTRIBUTION WIDTH 13.3 % (11.5-14.5)
[2017-10-01 20:55] LABS: WHITE BLOOD COUNT 14.2 K/uL (4.8-10.8)
[2017-10-01 21:03] VITALS: RESP 18
[2017-10-01 21:09] LABS: ALB/GLOB RATIO 1.2 (1.0-2.1); ALBUMIN 4.3 g/dL (3.5-5.0); ALT/SGPT 31 U/L (9-52); AST/SGOT 22 U/L (14-36); BLOOD UREA NITROGEN 10 mg/dL (7-17); CALCIUM 9.5 mg/dl (8.6-10.4); GFR AFRICAN-AMERICAN > 60; GFR NON-AFRICAN AMERICAN > 60
--- NOTE | 2017-10-01 22:16 | CT ---
EXAM: CT Abdomen and Pelvis Without Intravenous Contrast CLINICAL HISTORY: 47 years old, female; Pain; Abdominal pain; Flank; Lower; Additional info: Lower back pain TECHNIQUE: Axial computed tomography images of the abdomen and pelvis without intravenous contrast. All CT scans at this facility use one or more dose reduction techniques, viz.: automated exposure control; ma/kV adjustment per patient size (including targeted exams where dose is matched to indication; i.e. head); or iterative reconstruction technique. Coronal and sagittal reformatted images were created and reviewed. COMPARISON: No relevant prior studies available. FINDINGS: Limitations: Lack of intravenous contrast. Motion artifact - mild to moderate. Lung bases: No acute findings. ABDOMEN: Liver: Fatty infiltration. Gallbladder and bile ducts: Cholecystectomy. No significant ductal dilation. Pancreas: Unremarkable. No ductal dilation. Spleen: No splenomegaly. Adrenals: No mass. Kidneys and ureters: No renal calculi. No hydronephrosis. Stomach and bowel: No definite mural thickening. No obstruction. PELVIS: Appendix: Normal caliber. No inflammation. Bladder: Unremarkable. No stones. Reproductive: 2.4 x 2.5 x 2.4 cm hypodense lesion within LEFT ovary. ABDOMEN and PELVIS: Intraperitoneal space: No significant fluid collection. No free air. Bones/joints: Chronic L5 pars defects. No acute fracture. Soft tissues: Tiny umbilical hernia containing fat. Vasculature: Unremarkable. No aneurysm. Lymph nodes: No pathologically enlarged lymph nodes. IMPRESSION: 1. No definite CT evidence of urolithiasis. 2. Probable LEFT ovarian cyst. Consider ultrasound. 3. Incidental/non-acute findings are described above.
--- NOTE | 2017-10-01 23:34 | US ---
EXAM: US Pelvis Complete, Transabdominal US Pelvis, Transvaginal CLINICAL HISTORY: 47 years old, female; Pain; Pelvic pain; Additional info: Lower abd pain TECHNIQUE: Real-time transabdominal and transvaginal pelvic ultrasound (complete) with image documentation. Transvaginal imaging was used for better evaluation of the endometrium and adnexa. COMPARISON: CT - ABD PELVIS W/O PO OR IV CONT 2017-10-01 21:18 FINDINGS: Uterus/cervix: Uterus measures 10.0 x 4.8 x 6.3 cm in size. Two uterine masses, larger measuring 1.8 x 1.5 x 1.6 cm. Probable nabothian cyst. Endometrium: 1.1 cm in thickness. Right ovary: 3.3 x 2.8 x 1.9 cm in size. 1.5 x 1.0 x 1.2 cm hypoechoic lesion with internal echoes. 1.5 x 1.3 x 1.7 cm anechoic lesion. Normal flow. Left ovary: 2.1 x 2.8 x 4.2 cm in size. 2.8 x 2.9 x 2.4 cm anechoic lesion. Normal flow. Free fluid: Trace free fluid within pelvis. Bladder: Unremarkable as visualized. IMPRESSION: 1. Probable hemorrhagic RIGHT ovarian cyst. Recommend sonographic followup in 6 weeks to ensure resolution and exclude other etiologies. 2. Simple RIGHT ovarian cyst. 3. Simple LEFT ovarian cyst. 4. Probable fibroid uterus. 5. Incidental/non-acute findings are described above.
[2017-10-02 01:26] VITALS: BP 101/69; PULSE 68; TEMP 99; O2SAT 100
== END 2017-10-02 01:25 | disposition home or self-care (01) ==
LOC: C.ER 17:27
DX: N83.209 Unspecified ovarian cyst, unspecified side (principal); D25.9 Leiomyoma of uterus, unspecified